=== PATIENT | female | born 2000 | race Hispanic/Latino ===

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

== ENCOUNTER 2023-05-23 15:05 | Emergency (ER) | payer SELFPAY ==
[~2023-05-23] VITALS: Ht 160 cm; Wt 63.5 kg
[2023-05-23 15:34] VITALS: BP 117/100
[2023-05-23 16:39] LABS: BASO% 0.1 % (0-3); EOS% 0.4 % (0-8); HEMATOCRIT 43.2 % (37.0-47.0); HEMOGLOBIN 14.4 g/dl (12.0-16.0); IMMATURE GRANULOCYTES 0.2 % (0.0-5.0); LYMPH% 10.9 % (15-41); MEAN CORPUSCULAR HGB 30.5 pG CALC (26.0-32.0); MEAN CORPUSCULAR HGB CONC 33.3 g/dL CAL (32.0-36.0); MONO% 7.3 % (2-13); NEUT# 13.32 thou/uL (2.00-7.15); NEUT% 81.1 % (42-76); RED BLOOD COUNT 4.72 mill/uL (4.20-5.60); RED CELL DISTRI WIDTH 11.7 % (11.5-15.5)
[2023-05-23 16:41] LABS: MEAN CELL VOLUME 91.5 fL CALC (80.0-100.0)
[2023-05-23 16:53] LABS: ALBUMIN 4.4 g/dL (3.2-5.0); BUN 8 mg/dL (7-17); BUN/CREATININE RATIO 14 (12-20 (CALC)); CARBON DIOXIDE 27 mmol/l (22-30); CHLORIDE 101 mmol/l (95-108); CREATININE 0.5 mg/dL (0.5-1.0); GFR FOR AFR.AMER. > 60 ML/MIN (>=60 (CALC)); GFR OTHER RACES > 60 ML/MIN (>=60 (CALC)); SGOT/AST 30 u/l (14-36); SODIUM 139 mmol/l (137-146); TOTAL PROTEIN 8.1 g/dL (6.3-8.2)
[2023-05-23 17:01] LABS: POTASSIUM 4.1 mmol/l (3.5-5.1)
[2023-05-23 17:07] LABS: ALKALINE PHOSPHATASE 98 u/l (38-126); ANION GAP 15 (6-22 (CALC)); BILIRUBIN, TOTAL 0.8 mg/dL (0.02-1.3)
[2023-05-23] MEDS ORDERED: KEFLEX500 MG PO (18:46)
[2023-05-23 19:08] VITALS: BP 117/60
== END 2023-05-23 19:14 | disposition home or self-care (01) | DRG 603 ==
LOC: ED 15:05
PROVIDERS: Family Medicine
PROC: 0H98XZZ Drainage of Buttock Skin, External Approach (ICD-10-PCS; principal; 2023-05-23)
DX: L05.01 Pilonidal cyst with abscess (principal); L53.9 Erythematous condition, unspecified

== ENCOUNTER 2024-11-12 09:32 | Emergency (ER) | payer SELFPAY ==
[~2024-11-12] VITALS: Ht 160 cm; Wt 62.0 kg
[2024-11-12] VITALS (13 sets, daily range): BP systolic 111–139; BP diastolic 64–102
[~2024-11-12 09:32] MED LIST changes: +KEFLEX500 MG PO
[2024-11-12] MEDS ORDERED: LIDOcaine HCl 1% (Local Anesth.) 20 ML VIAL STI STA (11:01)
[2024-11-12] MEDS ORDERED: POVIDONE IODINE 0.5 OZ/BTL TOP ONE (11:05)
[2024-11-12] MEDS ORDERED: CEPHALEXIN500 M1 PO (12:26)
[2024-11-12] MEDS ORDERED: DOXYCYCLINE100 MG PO (12:26)
== END 2024-11-12 12:35 | disposition home or self-care (01) | DRG 603 ==
LOC: ED 09:32
PROC: 0H97XZZ Drainage of Abdomen Skin, External Approach (ICD-10-PCS; principal; 2024-11-12)
DX: L02.211 Cutaneous abscess of abdominal wall (principal)